=== PATIENT | female | born 1975 | race Caucasian/White ===

== ENCOUNTER 2019-02-18 06:34 | Inpatient (IN) | payer MEDICAID, OTHER ==
[2019-02-18] MEDS ORDERED: HYDROmorphone HCL/PF 1 MG/ML VIAL ONE (08:48)
[2019-02-18] MEDS ORDERED: LIDOCAINE HCL 2% PF 100MG/5ML VIAL IJ ONE (08:48)
[2019-02-18] MEDS ORDERED: FAMOTIDINE 20 MG/2 ML VIAL IV ONE (08:48)
[2019-02-18] MEDS ORDERED: DEXAMETHASONE SODIUM PHOSPHATE 10 MG/ML VIAL ONE (08:48)
[2019-02-18] MEDS ORDERED: ePHEDrine SULFATE 50 MG/1 ML IVP ONE (08:48)
[2019-02-18] MEDS ORDERED: ROCURONIUM BROMIDE 10 MG/ML 5ML VIAL ONE (08:48)
[2019-02-18] MEDS ORDERED: PROPOFOL 200 MG/20 ML VIAL IV ONE (08:48)
[2019-02-18] MEDS ORDERED: ceFAZolin SODIUM 1 GM VIAL ONE (08:48)
[2019-02-18] MEDS ORDERED: MIDAZOLAM HCL 2 MG/2 ML VIAL ONE (08:48)
[2019-02-18] MEDS ORDERED: SEVOFLURANE 250 ML LIQUID IH ONE (08:48)
[2019-02-18] MEDS ORDERED: fentaNYL CITRATE/PF 100 MCG/2 ML INJ. ONE (08:48)
[2019-02-18] MEDS ORDERED: FENTANYL CITRATE/PF 250 MCG/5 ML INJ. ONE (08:48)
[2019-02-18] MEDS ORDERED: SUGAMMADEX SODIUM 200 MG/2 ML VIAL IV ONE (08:48)
[2019-02-18] MEDS ORDERED: SCOPOLAMINE HYDROBROMIDE 1.5MG/72HR PATCH TD ONE (08:48)
[2019-02-18] MEDS ORDERED: LEVALBUTEROL NEB 1.25 MG/3 ML VIAL.NEB IH PRN (10:34)
[2019-02-18] MEDS ORDERED: diphenhydrAMINE HCL 50 MG/ML VIAL IVP PRN (10:34)
[2019-02-18] MEDS ORDERED: MORPHINE SULFATE 10MG/0.5ML ORAL SOLN UD CUP PO PRN (10:34)
[2019-02-18] MEDS ORDERED: MORPHINE SULFATE 4 MG/ML VIAL IVP PRN (10:34)
--- NOTE | 2019-02-18 11:00 | History and Physical Report ---
History of Present Illnes - History of Present Illness Reason for Visit: S/P Gastric Sleeve Procedure History of Present Illness: Patient is a 43-year-old female who has tried multiple diets and exercise programs with no success. She indicated that she gained weight with her daughters and subsequent partial hysterectomy- she states that she gained 170 pounds. However, she states that she has lost 30 pounds in the last 6 months with a keto and high protein diet. She was on Metformin for "pre" diabetes but since her weight loss she has not had to take it anymore. Procedure went well- patient will be admitted and monitored s/p surgical intervention. Patient has been on a liquid diet prior to surgery so she is a risk of dehydration s/p surgery and with diabetes history puts her at a higher risk. She will be admitted for IV hydration to help hydrate patient until she is able to tolerate a sufficient oral intake, will treat pain with IV medication until patient is able to tolerate oral meds, IV antiemetics to help reduce episodes of nausea and/or vomiting. Patient will be monitored closely using telemetry. We will check blood sugars regularly and work to prevent hyperglycemia. 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 denies: Influenza Vaccine Influenza Vaccine: No, Patient Refused Pneumonia Vaccine: No Resuscitation Status: Resusciation Status Resuscitation Status Full Code - Unable to Obtain History Unable to Obtain: No Review of Systems - Review of Systems Constitutional: Weakness. negative: Fever, Chills Eyes: negative: conjunctivae inflammation ENT: negative: Ear Pain, Nose Pain, Throat Pain Respiratory: negative: Cough, Shortness of Breath Cardiovascular: negative: Chest Pain, Edema Gastrointestinal: Nausea (s/p surgery), Abdominal Pain. negative: Vomiting Genitourinary: negative: Dysuria Musculoskeletal: Back Pain (chronic) Skin: Other (5 incision sites (x3 on the right with some drainage)). negative: Rash Neurological: Weakness - Medications/Allergies Allergies/Adverse Reactions: Allergies Allergy/AdvReac Type Severity Reaction Status Date / Time No Known Allergies Allergy Unverified 02/18/19 10:34 Home Medications: Home Medications NK 02/18/19 Exam - Exam General: Alert, Oriented to Person, Oriented to Place, Cooperative, Mild distress (still very drowsy), Morbidly Obese HEENT: PERRLA, Other (dry mucous membranes) Neck: Normal Range of Motion Lungs: Clear to auscultation, Normal air movement Cardiovascular: Regular rate, Normal S1, Normal S2 Peripheral Edema: None Peripheral Pulses: 2+ Abdomen: Decreased Bowel Sounds Integumentary: Warm, Dry, Pale, Other (5 incision site dressings intact (3 with scant amount of drainage-marked)) Extremities: No edema, Normal pulses, No tenderness/swelling Neurological: Strength Equal Bilat, Sensation intact, Generalized Weakness Psych/Mental Status: Mental status NL, Appropriate Affect Assessment/Plan - Assessment/Plan (1) S/P gastric surgery Status: Acute Current Visit: Yes Plan: Plan to admit for IV hydration, IV pain meds, and IV antiemetics. Lovenox and SCDs to help prevent DVTs, IS and frequent ambulation will be implemented. Start ice chips and advance diet as tolerated. (2) Morbid obesity due to excess calories Status: Acute Current Visit: Yes Plan: Patient is s/p gastric sleeve. We will assist patient with implementing gastric sleeve diet protocol starting with ice chips and clear liquids and advancing as tolerated once nausea is controlled and patient is able to tolerate PO (3) Chronic low back pain Status: Acute Current Visit: Yes Qualifiers: Back pain laterality: bilateral Sciatica presence: unspecified whether sciatica present Qualified Code(s): M54.5 - Low back pain; G89.29 - Other chronic pain Plan: Will monitor- will have patient up and walking; may offer K-Pad if needed (4) Pre-diabetes Status: Acute Current Visit: Yes Plan: Pt not currently taking Metformin due to some weight loss. However, we will obtain chem sticks every 6 hrs and monitor for hypo/hyperglycemia. VTE Assessment - RISK FACTOR SCORE VTE RISK FACTOR SCORES: AGE 40-60 YEARS, OBESITY, MAJOR SURGERY/ANESTHESIA TIME > 1 HOUR - RISK VTE HIGH RISK: SCORE OF 3-4 (RISK PROXIMAL DVT 4-8%) PROPHYLAXIS NEEDED (Will implement Lovenox daily, SCDs while in bed, ambulation, IS)
[2019-02-18] MEDS: ONDANSETRON HCL/PF 4 MG/ 2ML VIAL IVP PRN ×2 (11:45→21:15)
[2019-02-18] MEDS: 0.9 % SODIUM CHLORIDE 1,000 ML IV SCH ×2 (11:45→18:35)
[2019-02-18] MEDS: KETOROLAC TROMETHAMINE 30 MG/1ML VIAL IV PRN ×2 (11:47→18:35)
[2019-02-18 14:26] VITALS: BMI 97.9
[2019-02-18] MEDS: CEFAZOLIN SODIUM/DEXTROSE,ISO 1 GM/50 ML PIGGYBACK IV SCH (15:16)
[2019-02-18] MEDS: FAMOTIDINE 20 MG/2 ML VIAL IVP SCH (21:20)
[2019-02-18] MEDS: HYDROCODON-ACETAMIN 7.5-325/15ML SOLN UD CUP PO PRN (21:36)
[2019-02-19] MEDS: 0.9 % SODIUM CHLORIDE 1,000 ML IV SCH ×5 (01:17→22:29)
[2019-02-19] MEDS: CEFAZOLIN SODIUM/DEXTROSE,ISO 1 GM/50 ML PIGGYBACK IV SCH (02:13)
[2019-02-19] MEDS: PROMETHAZINE HCL 25 MG in 0.9 % SODIUM CHLORIDE 50 ML IV PRN ×2 (03:55→18:25)
[2019-02-19] MEDS: ONDANSETRON HCL/PF 4 MG/ 2ML VIAL IVP PRN ×3 (06:30→23:10)
--- NOTE | 2019-02-19 06:56 | Inpatient Progress Note ---
Subjective - Required Recertification Statement I anticipate X number of days because-include discharge plan: 1 - Review of Systems Events since last encounter: Patient has been having some difficulty with nausea and dry heaves- antiemetics have been given- will continue with IVF due to lack of oral intake. General: Denies: Chills, Night Sweats HEENT: Denies: Head Aches, Eye Pain, Ear Pain, Dysphasia Pulmonary: Denies: Dyspnea, Cough Cardiovascular: Denies: Chest Pain, Light Headedness Gastrointestinal: Nausea, Vomiting (dry heaves through the night), Abdominal Pain (s/p gastric sleeve) Genitourinary: Denies: Dysuria Musculoskeletal: Denies: Back Pain Neurological: Weakness Objective - Exam Vitals and I&O: Vital Signs Temp 98.4 F 02/19/19 06:33 Pulse 64 02/19/19 06:33 Resp 20 02/19/19 06:33 BP 125/65 02/19/19 06:33 Pulse Ox 96 02/19/19 06:33 Intake & Output 02/18/19 02/18/19 02/19/19 11:59 23:59 11:59 Intake Total 450 1620 Output Total 500 1200 Balance -50 420 Weight 292 kg Intake: IV 450 1500 Left Medial Port Wrist 450 1500 Oral 120 Output: Urine 500 1200 Other: Voiding Method Toilet Toilet # Voids 2 # Bowel Movements 0 General: Alert, Oriented to Person, Oriented to Place, Oriented to Time, Cooperative, Moderate distress (very nauseated with dry heaves) HEENT: PERRLA, Nose Mucous membr. moist/[place] Neck: Supple, +2 carotid pulse wo bruit Lungs: Clear to auscultation, Normal air movement Cardiovascular: Regular rate, Normal S1, Normal S2 Abdomen: Soft, Decreased Bowel Sounds Extremities: No edema, Normal pulses, No tenderness/swelling Skin: Normal, Warm, Dry, Pale Neurological: Normal speech, Strength Equal Bilat, Normal tone, Sensation intact, Generalized Weakness Psych/Mental Status: Mental status NL, Mood NL, Appropriate Affect, Intact Judgment Assessment/Plan - Assessment/Plan (1) S/P gastric surgery Status: Acute Current Visit: Yes Assessment: Incision without redness, has some scant drainage to 3 incision sites, positive bowel sounds, minimal discomfort, belching and flatus, no extremity pain or edema, still having persistent nausea with dry heaves Plan: Will continue with IVF due to potential dehydration, use of IV antiemetic, IV Pepcid, frequent ambulation, frequent incentive spirometer use, SCDs while in b ed, advance diet per bariatric stage 1 (2) Morbid obesity due to excess calories Status: Acute Current Visit: Yes Assessment: Continuing with bariatric diet- patient having nausea and dry heaves Plan: Continuing with bariatric diet- still having nausea with dry heaves (3) Chronic low back pain Status: Acute Current Visit: Yes Qualifiers: Back pain laterality: bilateral Sciatica presence: unspecified whether sciatica present Qualified Code(s): M54.5 - Low back pain; G89.29 - Other chronic pain Assessment: Back pain is controlled at this time Plan: Will offer K-Pad if needed (4) Pre-diabetes Status: Acute Current Visit: Yes Plan: Continuing to monitor blood sugars
[2019-02-19] MEDS: KETOROLAC TROMETHAMINE 30 MG/1ML VIAL IV PRN ×2 (07:23→22:58)
[2019-02-19] MEDS: FAMOTIDINE 20 MG/2 ML VIAL IVP SCH ×2 (08:57→20:32)
[2019-02-19] MEDS: ENOXAPARIN SODIUM 40 MG/0.4 ML DISP.SYRIN SQ SCH (10:12)
[2019-02-20] MEDS: PROMETHAZINE HCL 25 MG in 0.9 % SODIUM CHLORIDE 50 ML IV PRN (02:49)
[2019-02-20] MEDS: HYDROCODON-ACETAMIN 7.5-325/15ML SOLN UD CUP PO PRN (02:50)
[2019-02-20] MEDS: KETOROLAC TROMETHAMINE 30 MG/1ML VIAL IV PRN (05:13)
[2019-02-20] MEDS: 0.9 % SODIUM CHLORIDE 1,000 ML IV SCH (05:14)
[2019-02-20 06:33] LABS: MEAN CORPUSCULAR HEMOGLOBIN 28.1 pg (28.0-34.0)
[2019-02-20 06:36] LABS: eGFR (Non-African) > 60
[2019-02-20 07:01] LABS: MONOCYTES % 5 % (0-11); SEGMENTED NEUTROPHILS % 60 % (39-79)
--- NOTE | 2019-02-20 07:53 | Discharge Summary ---
Discharge Summary - Discharge [facility] Admission Date: 02/18/19 Discharge Date: 02/20/19 History of Present Illness: Patient is a 43-year-old female who has tried multiple diets and exercise programs with no success. She indicated that she gained weight with her daughters and subsequent partial hysterectomy- she states that she gained 170 pounds. However, she states that she has lost 30 pounds in the last 6 months with a keto and high protein diet. She was on Metformin for "pre" diabetes but since her weight loss she has not had to take it anymore. Procedure went well- patient will be admitted and monitored s/p surgical intervention. Patient has been on a liquid diet prior to surgery so she is a risk of dehydration s/p surgery and with diabetes history puts her at a higher risk. She will be admitted for IV hydration to help hydrate patient until she is able to tolerate a sufficient oral intake, will treat pain with IV medication until patient is able to tolerate oral meds, IV antiemetics to help reduce episodes of nausea and/or vomiting. Patient will be monitored closely using telemetry. We will check blood sugars regularly and work to prevent hyperglycemia. Condition at Discharge: Stable Home Medications: Ambulatory Orders Medication Instructions Recorded NK 02/18/19 Consultations this Visit: None Procedures this Visit: Other (S/P Gastric Sleeve) Allergies/Adverse Reactions: Allergies Allergy/AdvReac Type Severity Reaction Status Date / Time No Known Allergies Allergy Unverified 02/18/19 10:34 Patient Problems: Current Active Problems Problem Status Onset Chronic low back pain Acute Morbid obesity due to excess calories Acute Pre-diabetes Acute S/P gastric surgery Acute Discharge Summary: Patient is a 43-year-old female that underwent the gastric sleeve procedure and has done well. She has been very cooperative with her care by ambulating frequently, using her incentive spirometer, and wearing her SCDs while in bed. She has been compliant with her diet during hospitalization. She is having minimal discomfort at this time and minimal nausea- she has is passing gas and belching. She is aware of discharge instructions and what she can and cannot do post surgical- she is aware of the strict diet she must follow to decrease discomfort and have success after procedure. She has family support and significant other will be taking her home- medications written by surgeon given to patient. She feels ready to go home. Hospital Course: Patient received pain medications, antiemetics, and IVF and was transitioned to oral. She has been up ambulating and using incentive spirometer. - Final Diagnosis (1) S/P gastric surgery Problems: Incision without redness- there is a scant amount of drainage to 3 sites (not worsening), positive bowel sounds, minimal discomfort, belching and flatus, no extremity pain or edema Right or Left: Right (2) Morbid obesity due to excess calories Problems: Will continue with bariatric diet Right or Left: Right (3) Chronic low back pain Problems: Stable Right or Left: Right (4) Pre-diabetes Problems: Has not been on Metformin Right or Left: Right
[2019-02-20] MEDS: FAMOTIDINE 20 MG/2 ML VIAL IVP SCH (08:17)
[2019-02-20] MEDS: ENOXAPARIN SODIUM 40 MG/0.4 ML DISP.SYRIN SQ SCH (08:18)
[2019-02-20 09:03] VITALS: BP 135/73
--- NOTE | 2019-02-21 14:38 | Operative Note ---
PREOPERATIVE DIAGNOSIS: Morbid obesity. POSTOPERATIVE DIAGNOSIS: Morbid obesity. PROCEDURES PERFORMED: 1. Laparoscopic vertical sleeve gastrectomy. 2. Upper gastrointestinal endoscopy. SURGEON: Juancarlos Laguna M.D. INDICATIONS FOR PROCEDURE: Ms. Lisa Farrell is a 43-year-old female who presented with features of morbid obesity. She was noted to have a weight of 295 pounds with a BMI of 44.8. The patient was advised laparoscopic vertical sleeve gastrectomy and possible hiatal hernia repair. The patient showed understanding and agreed to proceed. DESCRIPTION OF PROCEDURE: After explaining to the patient in detail and informed consent was obtained, the patient was identified in the preoperative holding area. The patient was transferred to the operating room and was placed in supine position. Sequential compressive devices were placed for DVT prophylaxis. Preoperative antibiotics were given. After induction of anesthesia, the abdomen was prepped and draped in a sterile fashion. Through a left upper quadrant 1-cm incision, and using Optiview technique, the peritoneal cavity was entered and pneumoperitoneum was created. Thereafter, under direct vision, another 5-mm trocar was placed in the left midabdomen and another 15-mm trocar was placed in the right midabdomen. Through a 1-cm incision in the right subcostal region, another 5-mm trocar was placed. Through a 1-cm incision in the epigastrium, a Sivan retractor was introduced and the left lobe of the liver was retracted. On initial inspection, the patient was noted to have no evidence of hiatal hernia. I took down the gastroepiploic vessels using a LigaSure. This was continued superiorly. The short gastric vessels were taken down. The gastrophrenic ligament was divided and the Angle of His was mobilized. The posterior attachments of the stomach on the pancreas were released. Distally, the gastroepiploic vessels were taken down up to about 4 cm proximal to the pylorus. At this point, a #38 Tamazight Hurst Bougie was introduced into the stomach and was placed along the lesser curve. The stomach was then divided in a vertical fashion with multiple Endo MONICA Covidien Black Load Staplers. The first firing was directed outwards towards the greater curvature. Subsequent firings were directed towards the Angle of His to create a loose sleeve around the #38 Tamazight bougie. The bougie was then removed and an upper GI endoscopy was performed at this point. The scope was introduced into the esophagus and was gradually advanced into the stomach. The GE junction appeared normal. The sleeve size appeared normal. No evidence of any active bleeding was noted. The stomach was insufflated with air and irrigation of fluid along the staple line revealed no evidence of air leak. The stomach was then suctioned out and the scope was removed. Absolute hemostasis was ensured. Thorough saline irrigation was given. The Sivan retractor was removed. Approximately 10 mL of a lidocaine- Marcaine mix was instilled under the left hemidiaphragm. The sleeve gastrectomy specimen was removed. The abdomen was then deflated. The incisions were closed with 4-0 Monocryl. Dermabond was applied. Approximately 10 mL of a lidocaine- Marcaine mix was injected into all the incisions. The patient was awakened from anesthesia and was transferred to the recovery room in stable condition. ESTIMATED BLOOD LOSS: Approximately 10 mL. CONDITION OF THE PATIENT: Stable. FLUIDS GIVEN: Per Anesthesia note. SPECIMEN(S) SENT: Sleeve gastrectomy specimen. COMPLICATIONS: None. ANESTHESIA: General. MERLE
== END 2019-02-20 09:20 | disposition home or self-care (01) | DRG 621 ==
LOC: OPSURG 06:34 → SOUTH 10:27
PROVIDERS: ADMIT Nurse Practitioner Family; ATTEND Nurse Practitioner Family
PROC: 0DB64Z3 Excision of Stomach, Percutaneous Endoscopic Approach, Vertical (ICD-10-PCS; principal; 2019-02-18)
DX: E66.01 Morbid (severe) obesity due to excess calories (principal); Z68.41 Body mass index [BMI] 40.0-44.9, adult; G89.29 Other chronic pain; R11.2 Nausea with vomiting, unspecified; F31.9 Bipolar disorder, unspecified; Z48.815 Encounter for surgical aftercare following surgery on the digestive system
CPT/HCPCS: 80053; 85025; 88305; 97116; 97161; 97165; 97530; 97535; A9270; J0690; J1170; J1650; J1885; J2001; J2250; J2270; J2405; J2550; J2704; J3010; J7030; 43235; 99231; 99232; 99238; 43775